=== PATIENT | male | born 1950 | race Caucasian/White ===

== ENCOUNTER → 2018-12-03 | Outpatient (CLI) | payer MEDICARE, OTHER | END | disposition home or self-care (01) | LOC: PCVCCLINIC 16:14 | PROVIDERS: ATTEND Internal Medicine Cardiovascular Disease | DX: I48.91 Unspecified atrial fibrillation (principal); E78.00 Pure hypercholesterolemia, unspecified; I10 Essential (primary) hypertension; R06.09 Other forms of dyspnea; K21.9 Gastro-esophageal reflux disease without esophagitis; E78.2 Mixed hyperlipidemia; Z96.649 Presence of unspecified artificial hip joint; Z79.899 Other long term (current) drug therapy; Z72.89 Other problems related to lifestyle | CPT/HCPCS: G0463 ==

== ENCOUNTER → 2019-07-09 | Outpatient (CLI) | payer MEDICARE, OTHER | END | disposition home or self-care (01) | LOC: PCVCCLINIC 10:00 | PROVIDERS: ATTEND Internal Medicine Cardiovascular Disease | DX: I48.0 Paroxysmal atrial fibrillation (principal); I10 Essential (primary) hypertension; E78.00 Pure hypercholesterolemia, unspecified; R60.9 Edema, unspecified; K21.9 Gastro-esophageal reflux disease without esophagitis; E78.2 Mixed hyperlipidemia; Z79.899 Other long term (current) drug therapy; Z72.89 Other problems related to lifestyle | CPT/HCPCS: 93005; G0463 ==